=== PATIENT | female | born 1990 | race African-American/Black ===

== ENCOUNTER 2022-01-28 23:11 | Emergency (ER) | payer MEDICAID ==
[~2022-01-28] VITALS: Ht 170.2 cm; Wt 132.0 kg
[2022-01-28 23:17] VITALS: BP 149/95
[2022-01-28] MEDS ORDERED: LIDOCAINE HCL 1% 10 MG/ML 10ML VIAL IJ SCH (23:45)
[2022-01-29] MEDS ORDERED: LIDOCAINE HCL/PF 1% 10 MG/ML 5ML VIAL INFIL ONE
[2022-01-29] MEDS ORDERED: BACITRACIN ZINC OINT UDPKT TOP ONE
[2022-01-29] MEDS ORDERED: TETANUS, DIPHTHERIA, PERTUSSIS VAC/PF 0.5ML (>10YR OLD) IM ONE
== END 2022-01-29 00:39 | disposition home or self-care (01) ==
LOC: ER 23:11
DX: S49.80XA Other specified injuries of shoulder and upper arm, unspecified arm, initial encounter (principal); X58.XXXA Exposure to other specified factors, initial encounter; Y93.89 Activity, other specified; Y92.89 Other specified places as the place of occurrence of the external cause; Y99.8 Other external cause status
CPT/HCPCS: 90715; 99282; J3490; Z7610